=== PATIENT | female | born 1995 | race Caucasian/White ===

== ENCOUNTER 2018-05-05 11:09 | Inpatient (IN) | payer MEDICAID ==
[~2018-05-05] VITALS: Ht 162.6 cm; Wt 94.5 kg
[2018-05-05 11:22] VITALS: Ht 162.6 cm; Wt 94.5 kg
[2018-05-05 12:22] LABS: UA SPECIFIC GRAVITY 1.015 (1.005-1.035); microscopic required? YES; urine erythrocyte 3+ (NEGATIVE)
[2018-05-05 12:38] LABS: CALCIUM 9.1 mg/dL (8.5-10.1); CARBON DIOXIDE 30.6 mmol/L (21-32); CHLORIDE SERUM 104 mmol/L (98-107); CREATININE SERUM 0.7 mg/dL (0.6-1.0); GFR1 > 60 mL/min; GLUCOSE SERUM 87 mg/dL (74-106); POTASSIUM SERUM 4.2 mmol/L (3.5-5.1); SODIUM SERUM 140 mmol/L (136-145)
[2018-05-05 12:43] LABS: ALBUMIN 3.5 g/dL (3.4-5.0); ALKALINE PHOSPHATASE 94 U/L (46-116); ALT/SGPT 26 U/L (14-59); AST/SGOT 23 U/L (15-37); BILIRUBIN TOTAL 0.5 mg/dL (0.20-1.00); TOTAL PROTEIN, SERUM 7.5 g/dL (6.4-8.2)
[2018-05-05 14:23] LABS: BASOPHIL % 0.3 % (0-2); PLATELET COUNT 378 x10^3mcL (130-400); RED CELL DISTRIBUTION WIDTH 13.3 % (11.5-14.5)
[2018-05-05 16:52] LABS: BASOPHIL % 0.2 % (0-2); PLATELET COUNT 352 x10^3mcL (130-400); RED CELL DISTRIBUTION WIDTH 13.6 % (11.5-14.5)
[2018-05-05 19:23] VITALS: BP 115/74
[2018-05-06 05:59] VITALS: BP 103/55
[2018-05-06 06:14] LABS: BASOPHIL % 0.1 % (0-2); PLATELET COUNT 368 x10^3mcL (130-400); RED CELL DISTRIBUTION WIDTH 13.4 % (11.5-14.5)
[2018-05-06 06:33] LABS: ALKALINE PHOSPHATASE 87 U/L (46-116); ALT/SGPT 25 U/L (14-59); AST/SGOT 20 U/L (15-37); BILIRUBIN TOTAL 0.4 mg/dL (0.20-1.00); CALCIUM 8.5 mg/dL (8.5-10.1); CARBON DIOXIDE 29.6 mmol/L (21-32); CHLORIDE SERUM 104 mmol/L (98-107); CREATININE SERUM 0.6 mg/dL (0.6-1.0); GFR1 > 60 mL/min; GLUCOSE SERUM 92 mg/dL (74-106); POTASSIUM SERUM 4.2 mmol/L (3.5-5.1); SODIUM SERUM 141 mmol/L (136-145); TOTAL PROTEIN, SERUM 6.9 g/dL (6.4-8.2)
[2018-05-06 06:52] LABS: ALBUMIN 3.2 g/dL (3.4-5.0)
[2018-05-06 09:54] VITALS: BP 117/70
[2018-05-06 16:55] VITALS: BP 117/70
[2018-05-06 17:27] VITALS: BP 110/75
== END 2018-05-06 17:35 | disposition home or self-care (01) | DRG 813 ==
LOC: ED 11:09 → MU 16:52 → DU 16:52 → EDBEDREQ 16:57 → MU 19:06
PROVIDERS: Emergency Medicine; Internal Medicine Pulmonary Disease
DX: N99.821 Postprocedural hemorrhage of a genitourinary system organ or structure following other procedure (principal); K66.1 Hemoperitoneum; N39.0 Urinary tract infection, site not specified; N83.209 Unspecified ovarian cyst, unspecified side; Y83.8 Other surgical procedures as the cause of abnormal reaction of the patient, or of later complication, without mention of misadventure at the time of the procedure; Y82.8 Other medical devices associated with adverse incidents
CPT/HCPCS: J0696; J2270; J3010; Q9967

== ENCOUNTER 2018-09-08 11:03 | Emergency (ER) | payer MEDICAID ==
[~2018-09-08] VITALS: Ht 162.6 cm; Wt 102.1 kg
[2018-09-08 11:11] VITALS: Ht 162.6 cm; Wt 102.1 kg
[2018-09-08 12:45] LABS: BASOPHIL % 0.2 % (0-2); PLATELET COUNT 480 x10^3mcL (130-400); RED CELL DISTRIBUTION WIDTH 13.6 % (11.5-14.5)
[2018-09-08 12:49] LABS: CALCIUM 8.9 mg/dL (8.5-10.1); CARBON DIOXIDE 28.9 mmol/L (21-32); CHLORIDE SERUM 104 mmol/L (98-107); CREATININE SERUM 0.7 mg/dL (0.6-1.0); GFR1 > 60 mL/min; GLUCOSE SERUM 90 mg/dL (74-106); SODIUM SERUM 140 mmol/L (136-145)
[2018-09-08 12:56] LABS: ALBUMIN 3.6 g/dL (3.4-5.0); ALKALINE PHOSPHATASE 81 U/L (46-116); ALT/SGPT 27 U/L (14-59); AST/SGOT 17 U/L (15-37); BILIRUBIN TOTAL 0.3 mg/dL (0.20-1.00); TOTAL PROTEIN, SERUM 8.2 g/dL (6.4-8.2)
[2018-09-08 15:38] VITALS: BP 146/95
== END 2018-09-08 15:38 | disposition home or self-care (01) ==
LOC: ED 11:03
PROVIDERS: Emergency Medicine
DX: R10.32 Left lower quadrant pain (principal); N92.0 Excessive and frequent menstruation with regular cycle; Z90.721 Acquired absence of ovaries, unilateral
CPT/HCPCS: 36415